=== PATIENT | male | born 1955 | race Caucasian/White ===

== ENCOUNTER 2016-08-02 01:58 | Emergency (ER) | payer BC ==
[~2016-08-02] VITALS: Ht 180.3 cm; Wt 108.6 kg
[2016-08-02] MEDS ORDERED: NORCO 5/3251 TABLET PO (05:45)
[2016-08-02 05:49] VITALS: BP 162/87
== END 2016-08-02 06:05 | disposition home or self-care (01) ==
LOC: EME 01:58
PROC: 0HQ3XZZ Repair Left Ear Skin, External Approach (ICD-10-PCS; principal; 2016-08-02)
DX: S01.312A Laceration without foreign body of left ear, initial encounter (principal); M25.562 Pain in left knee; Y04.0XXA Assault by unarmed brawl or fight, initial encounter
CPT/HCPCS: 70450; 70486; 73564; 99281; 99284